=== PATIENT | male | born 1950 | race Caucasian/White ===

== ENCOUNTER 2023-09-29 13:18 | Inpatient (IN) | payer MEDICARE, SELFPAY ==
[2023-09-29] VITALS (21 sets, daily range): BP systolic 61–156; BP diastolic 33–84; BMI 30.3
[2023-09-29 10:50] LABS: % Basophils 0.2 % (0-2); % Immature Granulocytes 0.7 % (0-0.5); % Lymphocytes 3.4 % (20.5-51.1); % Monocytes 8.8 % (1.7-9.3); % Neutrophils 86.9 % (42.2-75.2); Absolute Immature Granulocytes 0.1 10^3/uL (0-0.05); Absolute Lymphocytes 0.6 10^3/uL (1.2-3.4); Absolute Monocytes 1.5 10^3/uL (0.1-0.6); Absolute Neutrophils 14.8 10^3/uL (1.4-6.5); Hematocrit 40.4 % (39.0-52.0); Hemoglobin 14.3 g/dL (13.0-18.0); Mean Corp Hgb Conc. 35.4 g/dL (33.0-37.0); Mean Corpuscular Hgb 33.3 pg (27.0-31.0); Mean Platelet Volume 10.3 fL (7.4-10.4); Nucleated Red Blood Cells % 0 % (-); Platelet Count 124 10^3/uL (130-400); Red Cell Dist. Width 13.2 % (11.5-14.5); White Blood Cell Count 17.1 10^3/uL (4.8-10.8)
[2023-09-29 11:01] LABS: ALT (SGPT) 207 U/L (0-50); AST (SGOT) 213 U/L (17-59); Albumin 4.1 g/dl (3.5-5.0); Alkaline Phosphatase 172 U/L (38-126); Blood Urea Nitrogen 14 mg/dl (9-20); Carbon Dioxide 24 mmol/L (22-30); Chloride 101 mmol/L (98-107); Estimated Creatinine Clearance 76 ml/min; Glucose 185 mg/dl (70-99); Lipase 42 U/L (23-300); Potassium 3.2 mmol/L (3.5-5.1); Sodium 133 mmol/L (135-145); Total Bilirubin 3.6 mg/dl (0.2-1.3); Total Protein 6.9 g/dl (6.3-8.2); eGFR > 60.00
--- NOTE | 2023-09-29 11:02 | ED.GENMED ---
History of Present Illness
<Jennifer Wesley PA-C - Last Filed: 10/01/23 23:52>
General
Chief Complaint: Abdominal Symptoms
Source: patient and spouse
Exam Limitations: none
Time Seen by Provider: 09/29/23 10:17
Nursing documentation reviewed up to this point in time: agreed with
Travel History
Have you had any contact with someone who has COVID-19?: No
Do you have any symptoms of coronavirus? Fever > 100 degrees, chills, cough, shortness of breath, sore throat, loss of taste or smell, muscle aches, or headache?: No
History of Present Illness
History of Present Illness:
Patient is a 73-year-old male with history hyperlipidemia, hypertension, GERD presenting for evaluation of epigastric abdominal pain with associated vomiting. Symptoms started acutely 2 days ago. He reports severe epigastric abdominal pain and
vomiting since onset. He had a low-grade temperature yesterday around 100.0 F with chills for the past 2 nights. Pain is mostly located in epigastric region without radiation. He denies any association with eating. He denies any chest pain,
shortness of breath, diarrhea, or constipation. Patient has no cough or symptoms. Patient denies ever feeling pain similar to this in the past.
Patient was seen in urgent care earlier today for evaluation of pain and referred to emergency department for possible imaging.
Patient drinks about 1 [place] per day. He is a non-smoker.
Phy Exam
<Jennifer Wesley PA-C - Last Filed: 10/01/23 23:52>
Physical Exam
Physical Exam:
General: Acutely ill-appearing, rigors
Vitals: Vital signs stable, low-grade temp of 99.5 F
HEENT: Atraumatic, normocephalic; pupils equal round reactive light bilaterally, protecting airway
Neck: appears supple, no meningeal signs
CV: Regular rate and rhythm, heart sounds normal, no evidence of cyanosis
Resp: No evidence of respiratory distress, lungs clear, no accessory muscle use
Abd: Soft, moderately tender in upper abdomen with some voluntary guarding, non-distended, negative Hoang sign; no CVA tenderness
Extremities: No deformities, no evidence of cyanosis or edema
Neuro: alert and oriented to person place time, speech normal, no focal motor deficits
Psych: Normal affect
Skin: Intact, no rashes or jaundice
Course
<Jennifer Wesley PA-C - Last Filed: 10/01/23 23:52>
Orders/Labs/Results
Orders:
Orders
09/29/23 10:39
Complete Blood Count/With Diff Urgent
Comprehensive Metabolic Panel Urgent
Lipase Urgent
09/29/23 11:08
CT Abd/pelvis W Iv Cont Urgent
Comment: hx appendectomy
Reason For Exam: epigastric abdominal pain, vomiting
0.9% Sodium Chloride 1000 ml [Nss] 1,000 ml IV BOLUS
HYDROmorphone [Dilaudid] 1 mg IV NOW STA
Ondansetron Injectable [Zofran] 4 mg IV NOW STA
09/29/23 11:17
Lactate Level [Lactic Acid] Urgent
Blood Culture Q30M
REN Source: Blood/Venous
Specimen Description:
Blood Culture Q30M
REN Source: Blood/Venous
Specimen Description:
09/29/23 11:45
Acetaminophen [Tylenol] 1,000 mg .ROUTE .STK-MED ONE
09/29/23 11:46
Acetaminophen [Tylenol] 1,000 mg PO NOW STA
Acetaminophen [Tylenol] 1,000 mg PO NOW STA
09/29/23 12:24
0.9% Sodium Chloride 1000 ml [Nss] 1,000 ml IV BOLUS
Piperacillin/Tazo 3.375 Gram [Zosyn] 3.375 gram in 50 ml IV NOW
09/29/23 12:25
POTASSIUM PHOSPHATE 1mEq=0.7mM [Potassium Phosphate] 40 meq 0.9% Sodium Chloride 250 ml [Nss] 250 ml IV NOW
09/29/23 12:55
Admit/Transfer Patient As Directed
Co-Sign Provider:
Level of Care: Inpatient admission
Assign to:: Telemetry
Physician / Group: mao leung
Diagnosis: acute cholecystitis
Reason for Telemetry: Other
Other Reason for Telemetry: sepsis
Date to Stop Telemetry: 10/01/23
Time to Stop Telemetry: 11:00
Reason for Hospitalization: acute cholecystitis
Expected length of stay greater than two midnights?: Yes
ELOS- Estimated Length of Stay in days: 3
I certify the patient meets the requirements for IP care: Yes
09/29/23 12:56
Code Status As Directed
Resuscitation Status: Full Code
09/29/23 13:04
EKG [Electrocardiogram (*1)] Stat
Reason for Study: QTc Monitoring
09/29/23 14:03
0.9% Sodium Chloride 1000 ml [Nss] 1,000 ml IV 80 mls/hr
HYDROmorphone [Dilaudid] 0.5 mg IV Q4HPRN PRN
Ibuprofen [Motrin] 400 mg PO Q6HPRN PRN
Ondansetron Injectable [Zofran] 4 mg IV Q6HPRN PRN
09/29/23 14:03
SURGICAL CONSULT Routine
Consulting Provider: Erick Mar
Was physician already notified: Yes
Activity As Directed
Activity Level: As Tolerated
Pneumatic Compression Sleeves As Directed
Type: Knee high
Vital Signs As Directed
Frequency: Per unit guidelines
DX Deep Vein Thrombosis Video Routine
09/29/23 14:55
Lactic Acid Q4H
09/29/23 18:00
Piperacillin/Tazo 3.375 Gram [Zosyn] 3.375 gram in 50 ml IV Q6H
09/29/23 19:10
Lactic Acid Q4H
09/29/23 22:00
Metoprolol Xl [Toprol Xl] 50 mg PO HS
Potassium Chloride [KCl] 10 meq PO HS
09/30/23 06:35
Complete Blood Count/No Diff IN AM
09/30/23 08:00
Amlodipine [Norvasc] 5 mg PO DAILY
Pantoprazole [Protonix IV] 40 mg IV DAILY
10/01/23 07:51
Complete Blood Count/No Diff IN AM
10/01/23 11:00
DC Protocol for Telemetry ONCE
10/02/23 06:00
Basic Metabolic Panel IN AM
Complete Blood Count/No Diff IN AM
LFT [Fazzk-Exkf-Gubbgbe] IN AM
10/03/23 06:00
Basic Metabolic Panel IN AM
Complete Blood Count/No Diff IN AM
LFT [Dxasb-Ozgi-Aaqsasl] IN AM
10/04/23 06:00
Complete Blood Count/No Diff IN AM
LFT [Pluzs-Jjkk-Sccttsn] IN AM
Abnormal Lab Results
09/29/23 09/29/23
10:39 11:17
WBC 17.1 H 10^3/uL
(4.8-10.8)
RBC 4.30 L 10^6/uL
(4.70-6.10)
MCH 33.3 H pg
(27.0-31.0)
Plt Count 124 L 10^3/uL
(130-400)
Abs Immat Gran (auto) 0.1 H 10^3/uL
(0-0.05)
Absolute Neuts (auto) 14.8 H 10^3/uL
(1.4-6.5)
Absolute Lymphs (auto) 0.6 L 10^3/uL
(1.2-3.4)
Absolute Monos (auto) 1.5 H 10^3/uL
(0.1-0.6)
Immature Gran % 0.7 H %
(0-0.5)
Neutrophils % 86.9 H %
(42.2-75.2)
Lymphocytes % 3.4 L %
(20.5-51.1)
Sodium 133 L mmol/L
(135-145)
Potassium 3.2 L mmol/L
(3.5-5.1)
Glucose 185 H mg/dl
(70-99)
Lactic Acid 4.6 H* mmol/L
(0.7-2.0)
Total Bilirubin 3.6 H mg/dl
(0.2-1.3)
AST 213 H U/L
(17-59)
ALT 207 H U/L
(0-50)
Alkaline Phosphatase 172 H U/L
(38-126)
09/29/23 10:39
09/29/23 10:39
Vital Signs
Initial and Last Documented VS:
Initial Vital Signs
Temp Pulse Resp BP Pulse Ox
99.5 F 89 16 124/82 98
09/29/23 10:13 09/29/23 10:13 09/29/23 10:13 09/29/23 10:13 09/29/23 10:13
Last Documented Vital Signs
Temp Pulse Resp BP Pulse Ox
97.9 F 64 16 123/71 95
10/01/23 23:00 10/01/23 23:00 10/01/23 23:00 10/01/23 23:00 10/01/23 23:00
Mianlt;Adalberto Edge DO - Last Filed: 09/29/23 11:51>
Orders/Labs/Results
Orders:
Orders
09/29/23 10:39
Complete Blood Count/With Diff Urgent
Comprehensive Metabolic Panel Urgent
Lipase Urgent
09/29/23 11:08
CT Abd/pelvis W Iv Cont Urgent
Comment: hx appendectomy
Reason For Exam: epigastric abdominal pain, vomiting
0.9% Sodium Chloride 1000 ml [Nss] 1,000 ml IV BOLUS
HYDROmorphone [Dilaudid] 1 mg IV NOW STA
Ondansetron Injectable [Zofran] 4 mg IV NOW STA
09/29/23 11:17
Lactate Level [Lactic Acid] Urgent
Blood Culture Q30M
REN Source: Blood/Venous
Specimen Description:
Blood Culture Q30M
REN Source: Blood/Venous
Specimen Description:
09/29/23 11:45
Acetaminophen [Tylenol] 1,000 mg .ROUTE .STK-MED ONE
09/29/23 11:46
Acetaminophen [Tylenol] 1,000 mg PO NOW STA
Acetaminophen [Tylenol] 1,000 mg PO NOW STA
09/29/23 12:24
0.9% Sodium Chloride 1000 ml [Nss] 1,000 ml IV BOLUS
Piperacillin/Tazo 3.375 Gram [Zosyn] 3.375 gram in 50 ml IV NOW
09/29/23 12:25
POTASSIUM PHOSPHATE 1mEq=0.7mM [Potassium Phosphate] 40 meq 0.9% Sodium Chloride 250 ml [Nss] 250 ml IV NOW
09/29/23 12:55
Admit/Transfer Patient As Directed
Co-Sign Provider:
Level of Care: Inpatient admission
Assign to:: Telemetry
Physician / Group: mao leung
Diagnosis: acute cholecystitis
Reason for Telemetry: Other
Other Reason for Telemetry: sepsis
Date to Stop Telemetry: 10/01/23
Time to Stop Telemetry: 11:00
Reason for Hospitalization: acute cholecystitis
Expected length of stay greater than two midnights?: Yes
ELOS- Estimated Length of Stay in days: 3
I certify the patient meets the requirements for IP care: Yes
09/29/23 12:56
Code Status As Directed
Resuscitation Status: Full Code
09/29/23 13:04
EKG [Electrocardiogram (*1)] Stat
Reason for Study: QTc Monitoring
09/29/23 14:03
0.9% Sodium Chloride 1000 ml [Nss] 1,000 ml IV 80 mls/hr
HYDROmorphone [Dilaudid] 0.5 mg IV Q4HPRN PRN
Ibuprofen [Motrin] 400 mg PO Q6HPRN PRN
Ondansetron Injectable [Zofran] 4 mg IV Q6HPRN PRN
09/29/23 14:03
SURGICAL CONSULT Routine
Consulting Provider: Erick Mar
Was physician already notified: Yes
Activity As Directed
Activity Level: As Tolerated
Pneumatic Compression Sleeves As Directed
Type: Knee high
Vital Signs As Directed
Frequency: Per unit guidelines
DX Deep Vein Thrombosis Video Routine
09/29/23 14:55
Lactic Acid Q4H
09/29/23 18:00
Piperacillin/Tazo 3.375 Gram [Zosyn] 3.375 gram in 50 ml IV Q6H
09/29/23 19:10
Lactic Acid Q4H
09/29/23 22:00
Metoprolol Xl [Toprol Xl] 50 mg PO HS
Potassium Chloride [KCl] 10 meq PO HS
09/30/23 06:35
Complete Blood Count/No Diff IN AM
09/30/23 08:00
Amlodipine [Norvasc] 5 mg PO DAILY
Pantoprazole [Protonix IV] 40 mg IV DAILY
10/01/23 07:51
Complete Blood Count/No Diff IN AM
10/01/23 11:00
DC Protocol for Telemetry ONCE
10/02/23 06:00
Basic Metabolic Panel IN AM
Complete Blood Count/No Diff IN AM
LFT [Txtyb-Yioa-Batecuv] IN AM
10/03/23 06:00
Basic Metabolic Panel IN AM
Complete Blood Count/No Diff IN AM
LFT [Xtqbz-Dulu-Rfgarzl] IN AM
10/04/23 06:00
Complete Blood Count/No Diff IN AM
LFT [Cnxvk-Jtby-Dzgnjkq] IN AM
Abnormal Lab Results
09/29/23 09/29/23
10:39 11:17
WBC 17.1 H 10^3/uL
(4.8-10.8)
RBC 4.30 L 10^6/uL
(4.70-6.10)
MCH 33.3 H pg
(27.0-31.0)
Plt Count 124 L 10^3/uL
(130-400)
Abs Immat Gran (auto) 0.1 H 10^3/uL
(0-0.05)
Absolute Neuts (auto) 14.8 H 10^3/uL
(1.4-6.5)
Absolute Lymphs (auto) 0.6 L 10^3/uL
(1.2-3.4)
Absolute Monos (auto) 1.5 H 10^3/uL
(0.1-0.6)
Immature Gran % 0.7 H %
(0-0.5)
Neutrophils % 86.9 H %
(42.2-75.2)
Lymphocytes % 3.4 L %
(20.5-51.1)
Sodium 133 L mmol/L
(135-145)
Potassium 3.2 L mmol/L
(3.5-5.1)
Glucose 185 H mg/dl
(70-99)
Lactic Acid 4.6 H* mmol/L
(0.7-2.0)
Total Bilirubin 3.6 H mg/dl
(0.2-1.3)
AST 213 H U/L
(17-59)
ALT 207 H U/L
(0-50)
Alkaline Phosphatase 172 H U/L
(38-126)
09/29/23 10:39
09/29/23 10:39
Vital Signs
Initial and Last Documented VS:
Initial Vital Signs
Temp Pulse Resp BP Pulse Ox
99.5 F 89 16 124/82 98
09/29/23 10:13 09/29/23 10:13 09/29/23 10:13 09/29/23 10:13 09/29/23 10:13
Last Documented Vital Signs
Temp Pulse Resp BP Pulse Ox
97.9 F 64 16 123/71 95
10/01/23 23:00 10/01/23 23:00 10/01/23 23:00 10/01/23 23:00 10/01/23 23:00
<Jennifer Wesley PA-C - Last Filed: 10/01/23 23:52>
MDM/Problems Addressed
Differential Diagnosis Includes:
pancreatitis, cholecystitis, cholangitis, diverticulitis, perforated bowel,
MDM/Problems Addressed:
Patient is 73-year-old male presenting for evaluation of severe abdominal pain, vomiting for the past 2 days. He reports fever and chills over the past 2 nights. Denies diarrhea, constipation. No chest pain, shortness of breath, symptoms.
Seen in urgent care who recommended he got emergency department for possible imaging. Patient appears very acutely ill on initial examination, shaking in bed. He has very low-grade fever 99.5, otherwise hemodynamically stable. He has moderate
abdominal tenderness no significant in epigastric region with some voluntary guarding. Negative Hoang sign. Will get basic labs, lipase, CT abdomen pelvis. Will start septic workup with blood cultures. Will give Zofran, Dilaudid for pain.
Starting IV fluids.
CBC with significant leukocytosis of 17.1. CMP with mild hyponatremia, mild hypokalemia. Transaminitis with elevated bili of 3.6. Lactic acid elevated 4.6. Findings suggestive of possible sepsis secondary to gallbladder etiology. CT scan
pending. Will continue IV fluids.
CT scan shows severe emphysematous cholecystitis with possible CBD stone. Starting Zosyn.
Patient will require admission for sepsis secondary to cholangitis. Discussed with hospitalist, general surgery, GI.
Chronic conditions affecting care:
HTN, HLD, GERD
Acute Exacerbation and/or Progression of Chronic Illness:
Sepsis, acute cholecystitis, CBD stone
<Jennifer Wesley PA-C - Last Filed: 10/01/23 23:52>
*Radiology
Radiology exam reviewed: preliminary read by ED provider and radiology read reviewed
*Pulse Oximetry
Patient hypoxic: no
*Sod Stripper Interpretation
Rate: Sod Stripper- N/A
*Critical Care Note
Total Time (30-74mins, 75-104mins- exclusive of procedures): Not Applicable
ED Attending Note
<Jennifer Wesley PA-C - Last Filed: 10/01/23 23:52>
-
Portions of this chart may have been created with voice recognition software.� Occasional wrong word or��sound alike� substitutions may have occurred due to the inherent limitations of voice recognition software.
<Adalberto Edge DO - Last Filed: 09/29/23 11:51>
ED Attending Note
Patient seen and examined by attending physician: Yes
I performed the substantive portion of visit, reviewed & personally made and approve the management plan that is documented in note by myself or FLEX.: Yes
ED Attending Note:
Patient is a 73-year-old male who presents to the emergency department with fever and chills with shakes for the past 2 nights with nausea and vomiting but no diarrhea. Patient complains of upper abdominal pain. Patient denies chest pain or
shortness of breath. Patient is very dry and thirsty. Patient denies any symptoms. Patient denies coughing. Patient denies any previous history of similar episodes. On physical exam and patient appears to be moderate to severe distress with
dry mucous membranes. Patient shaking. Neck is supple without adenopathy. Heart is regular lungs are clear. On abdominal exam patient's tender with mild voluntary guarding in the midepigastric and right upper quadrant. Patient has diminished
breath sounds. No CVA tenderness. Patient has no edema or cyanosis. Patient appears rather acutely ill. Patient has a significantly elevated white blood cell count along with liver enzymes and bilirubin. I anticipate the patient having
gallbladder versus liver disease. Patient will be also evaluated for sepsis. Patient will be admitted.
Discharge Plan
Departure
Patient Disposition: Admit
Date of Disposition: 09/29/23
Time of Disposition: 12:40
Admit to: ICU
Presentation/result/management discussed w/ accepting MD/DO: Hospitalist
Discharge Problem:
Sepsis, Emphysematous cholecystitis, Common bile duct calculi
Interventions
Interventions:
*General Assessment Last Done: 09/29/23 10:38
*Neglect/Abuse Screening Last Done: 09/29/23 10:38
ED- Fall Risk Assessment Last Done: 09/29/23 11:49
*Nursing Disposition Last Done: 09/29/23 13:54
GV-Tqkbyi-Rkszsnvheb Assessment Last Done: 09/29/23 11:49
Discharge Date and Time
Discharge Date/Time: 09/29/23 13:54
[2023-09-29] MEDS: DILAUDID 1 MG IV (11:18)
[2023-09-29] MEDS: NSS 1000 IV ×3 (11:18→14:29)
[2023-09-29] MEDS: ZOFRAN 4 MG IV (11:19)
[2023-09-29] MEDS: TYLENOL 1000 MG PO (11:46)
[2023-09-29 12:32] LABS: Lactic Acid 4.6 mmol/L (0.7-2.0)
[2023-09-29] MEDS: POTASSIUM PHOSPHATE 259.090899999999976 MEQ IV (12:41)
[2023-09-29] MEDS: ZOSYN 50 IV ×3 (12:42→23:37)
--- NOTE | 2023-09-29 12:45 | HPS.HSE ---
Addendum entered and electronically signed by Abelardo Jaramillo MD 09/29/23 14:14:
I saw and examined the patient.
The OCCUPATIONAL HEALTH AND SAFETY MANAGER or PA's note was reviewed and I agree with the note.
Comment:
Patient 73 years old male with history of hypertension, hyperlipidemia, GERD, bicuspid aortic valve, presented to the hospital abdominal pain associated with nausea and vomiting for the last couple of days. His pain has progressively getting worse
and located more in the right upper quadrant associated with fevers and chills. Denies chest pain or shortness of breath or changes in the color of the stools or urine.In the ED fever to temperature 101.3 �F, WBC 17, sodium 133, potassium 3.2,
lactic acid 4.6, LFTs elevated. CT scan consistent with severe emphysematous cholecystitis. He was referred to hospitalist service for evaluation.
Physical exam:
General: Acutely ill
HEENT: Normocephalic, Atraumatic and Moist Mucous Membranes
Respiratory: Clear to Auscultation; Negative Wheezes, Rales or Rhonchi
Cardiac: Regular Rhythm and S1/S2
GI: Soft,Tender RUQ and Nondistended
Musculoskeletal: No Clubbing, No Cyanosis and No Edema
Neuro: Awake, Alert and Oriented
Psych: Calm
A/P:
Sepsis due to acute cholecystitis/evidence of choledocholithiasis and concerns for cholangitis--> keep n.p.o., aggressive IV fluids, broad-spectrum IV antibiotics, follow-up cultures. Needs urgent ERCP with and or followed by cholecystectomy.
Surgery and GI consulted. Currently hemodynamically stable but this needs to be monitored closely since this can change rather quickly. Further recommendations based on his clinical course.
Original Note:
Family Physician
-
Family Physician: Katja Medrano
Chief Complaint
-
epigastric pain associated with vomiting
History of Present Illness
73-year-old male with history hyperlipidemia, hypertension, GERD presenting for evaluation of epigastric abdominal pain with associated vomiting for past two days. he had a temp of 100.4 at home. has been taking Tylenol with some relief in his
symptoms. denied diarrhea. denied any blood in the vomit. denied SUN, dizzy or syncopal episode. denied chest pain, sob. denied dysuria or hematuria.
Patient drinks about 1 [place] per day.� He is a non-smoker.
CT with findings consistent with severe emphysematous cholecystitis. Multiple gallstones with adjacent pericholecystic inflammatory change and gallbladder distention. Gas within the gallbladder lumen.
2. Suspected stone within the distal common bile duct, measuring 3 mm in diameter, best seen on series 201 image 34.
3. Small bubbles of gas within the liver, likely representing intrahepatic biliary ductal air.
noted elevated wbc, lactic, fever. admitting with sepsis. patient received Dilaudid, Zosyn, k phos in ER. admitting for further management.
Medical History
Past Medical History
Past Medical History: Reports Other
Additional Past Medical History:
htn
hld
GERD
Past Surgical History: Reports Other
Additional Past Surgical History:
appendectomy
tonsillectomy
one lesion removed from testicle
Social History
Tobacco: Non-smoker
Alcohol: Daily
Drug: None
Personal:
Living: With Family
Family History
Family History: Not pertinent
Allergies / Home Medications
Allergies reflects when Allergies were last updated in [employer].
Home Medications with original date entered in [employer]
Allergy/Medication List:
Allergies
Allergy/AdvReac Type Severity Reaction Status Date / Time
No Known Allergies Allergy Verified 09/29/23 10:14
Review of Systems
-
Constitutional: Reports No Symptoms
EENT: Reports No Symptoms
Respiratory: Reports No Symptoms
Cardiac: Reports No Symptoms
Abdomen/GI: Reports Abdominal Pain, Nausea and Vomiting
: Reports No Symptoms
Musculoskeletal: Reports No Symptoms
Skin: Reports No Symptoms
Neurological: Reports No Symptoms
Endocrine: Reports No Symptoms
Hematologic/Lymphatic: Reports No Symptoms
Psych: Reports No Symptoms
Physical Exam
Vital Signs
Vital Signs
Temp Pulse Resp BP Pulse Ox
101.9 F H 102 26 139/66 92
09/29/23 12:29 09/29/23 11:41 09/29/23 11:41 09/29/23 11:41 09/29/23 11:41
Physical Exam
General: Well Developed, Well Nourished and No Apparent Distress
HEENT: NormoCephalic, Moist mucous membranes and Atraumatic
Respiratory: Clear
Cardiac: S1/S2 and Regular Rhythm; No Murmur or Rub
GI: Soft, Non Tender, Non Distended and Normal Bowel Sounds; No Organomegaly
Rectal: Deferred by Provider
Musculoskeletal: No Clubbing, No Cyanosis and No Edema
Skin: No Rash
Neuro: AO x 3 and Nonfocal/grossly intact
Psych: Calm
Laboratory Results
-
09/29/23 10:39
09/29/23 10:39
Laboratory Results
Lactic Acid 4.6 mmol/L (0.7-2.0) H* 09/29/23 11:17
Total Bilirubin 3.6 mg/dl (0.2-1.3) H 09/29/23 10:39
AST 213 U/L (17-59) H 09/29/23 10:39
ALT 207 U/L (0-50) H 09/29/23 10:39
Alkaline Phosphatase 172 U/L (38-126) H 09/29/23 10:39
Lipase 42 U/L (23-300) 09/29/23 10:39
Data Reviewed
-
CT Scan: Report Reviewed by me
Lab Data: Labs Reviewed by me
Impression/Plan
-
#sepsis secondary to severe emphysematous cholecystitis with 3mm CBD stone
-temp 102.7, lactic 4.6,wbc 17.1, bili 3.6
-AT 213,ALT 207, ALK 172
-Zosyn imitated
-fluids continued
-Dilaudid prn for pa in
-blood culture sent from ER
-NPO
-surgery consulted
-Gi consulted
-CT abdomen pelvis with findings consistent with severe emphysematous cholecystitis. Multiple gallstones with adjacent pericholecystic inflammatory change and gallbladder distention. Gas within the gallbladder lumen.
2. Suspected stone within the distal common bile duct, measuring 3 mm in diameter, best seen on series 201 image 34.
3. Small bubbles of gas within the liver, likely representing intrahepatic biliary ductal air.
4. Moderate coronary arterial calcification. Please correlate with symptoms of and risk factors for coronary artery disease, with further workup as clinically appropriate.
#hyponatremia/hypokalemia likely from N/v
-na 133, k 3.2
-k phos in ER
-monitor BMP
-hold hctz due to hypokalemia/hyponatremia
#essential HTN
-BP stable
-Norvasc continued
-metoprolol continued
-hctz/triamterene held due to hyponatremia/hypokalemia
#HLD
-hold stain due to elevated LFT's
#GERD
-IV PPI
#DVT prophylaxis
-scd
#CODE status
-full code
--- NOTE | 2023-09-29 13:06 | CON.GS ---
Addendum entered and electronically signed by Erick Mar MD 09/29/23 14:04:
I saw and examined the patient independently.
The U[employer] Information Architect's note was reviewed and I agree with the note, assessment and plan except where noted below.
Comment: This is a 73-year-old male with a history of prior remote open appendectomy presents with 2-day history of postprandial epigastric and right upper quadrant pain and early sepsis. Febrile, elevated heart rate, tenderness palpation in the
right upper quadrant. Bilirubin is 3.6, lactate 4.6. CT scan concerning for 'emphysematous cholecystitis' however given the pneumobilia in the liver and the intraluminal air in the gallbladder as well as the distal CBD stone my suspicion is
elevated for cholangitis superimposed with acute cholecystitis.
GI consult for urgent ERCP. Will coordinate care.
CT scan reviewed with radiologist.
Will plan for a laparoscopic cholecystectomy and cholangiogram. Timing pending GI plans/recommendations, possible OR today versus tomorrow.
N.p.o., IV fluids, IV antibiotics.
Risks/Benefits/Alternatives, expected postoperative course and possible complications (bleeding, infection, injury to surrounding structures, acute/chronic pain) discussed at length. Patient wishes to proceed with surgery. All questions answered.
Consent obtained.
I spent roughly 70 minutes in total for the care of this patient today including direct patient care and counseling, reviewing labs, imaging, coordination of care, as well as documentation.
Original Note:
Medical History
-
Chief Complaint: Abdominal pain
History of Present Illness:
73 yo male with a h/o bicuspid [place] AV, GERD, HTN and open appendectomy who presents with epigastric and RUQ pain which began on Friday evening after a meal out at a restaurant which included sausage and peppers. He was awakened from sleep with
the pain and it has been persistent since that time. He denies vomiting but has not had an appetite and has only been able to take in fluids. He had a low grade temp of 100 yesterday and is febrile with temp of 102.7 initially in the ED. He has RUQ
tenderness on exam. He denies jaundice, acholic stools or changes to his urine.
Past Medical History
Past Medical History: GERD, HTN, Hypercholesterolemia, Valvular Disease (bicuspid AV ) and Other (MARINA/uses CPAP)
Past Surgical History: Appendectomy (open at age of 14), Tonsilectomy and Urological (removal of left testicular lesion)
Social History
Tobacco: Non-Smoker
Alcohol: Other (5X/day)
Personal:
Living: With Family
Family History
Family History: Reviewed & Not Pertinent
Allergies / Home Medications
Allergy/AdvReac Type Severity Reaction Status Date / Time
No Known Allergies Allergy Verified 09/29/23 10:14
Medication Instructions Recorded Confirmed Type
amlodipine 5 mg tablet 5 mg PO DAILY blood pressure 09/29/23 09/29/23 History
atorvastatin 10 mg tablet 10 mg PO HS high cholesterol 09/29/23 09/29/23 History
metoprolol succinate 50 mg 50 mg PO HS blood pressure 09/29/23 09/29/23 History
tablet,extended release 24 hr
multivitamin 1 tab PO DAILY Supplement 09/29/23 09/29/23 History
pantoprazole 20 mg tablet,delayed 20 mg PO DAILY Gastrointestinal 09/29/23 09/29/23 History
release Issue
potassium chloride 10 mEq 10 meq PO HS Electrolyte Repletion 09/29/23 09/29/23 History
capsule,extended release
psyllium 1 packet PO DAILY Constipation 09/29/23 09/29/23 History
triamterene 37.5 1 tab PO DAILY blood pressure 09/29/23 09/29/23 History
mg-hydrochlorothiazide 25 mg tablet
vitamin A-vitamin C-vit E-min 1 tab PO DAILY Supplement 09/29/23 09/29/23 History
tablet
Review of Systems
-
History Source: Patient and Family
All other systems: Negative unless noted
A 10 point review of systems was completed, and was negative except as per HPI.
Physical Exam
Vital Signs
Temp Pulse Resp BP Pulse Ox
101.9 F H 102 26 139/66 92
09/29/23 12:29 09/29/23 11:41 09/29/23 11:41 09/29/23 11:41 09/29/23 11:41
09/28/23 09/29/23 09/30/23
06:59 06:59 06:59
Actual Weight 97.5 kg
Body Mass Index (BMI) 30.0
Lab Results
09/29/23 10:39
09/29/23 10:39
WBC 17.1 10^3/uL (4.8-10.8) H 09/29/23 10:39
Hgb 14.3 g/dL (13.0-18.0) 09/29/23 10:39
Hct 40.4 % (39.0-52.0) 09/29/23 10:39
Plt Count 124 10^3/uL (130-400) L 09/29/23 10:39
Abs Immat Gran (auto) 0.1 10^3/uL (0-0.05) H 09/29/23 10:39
Neutrophils % 86.9 % (42.2-75.2) H 09/29/23 10:39
Physical Exam
General: Comfortable
HEENT: Normocephalic and Moist Mucous Membranes
Respiratory: Non Labored Respirations
GI: Soft, Non Distended and Tender (RUQ tenderness)
Skin: Other (Pale)
Neuro: Awake (sleepy s/p IV dilaudid) and AO x 3
Psych: Calm
Data Reviewed
-
CT Scan: Image Personally Visualized and interpreted, Report Reviewed by me, Discussed with Physician, Discussed with Nurse, Discussed with Patient and Discussed with Family
Labs: Labs Reviewed by me, Discussed with Physician, Discussed with Patient and Discussed with Family
Old Records: Reviewed
Assessment / Plan
-
Assessment:
This is a 73 yo male with h/o bicuspid av, MARINA on cpap, and open appendectomy presenting with 2 day history of RUQ after a fatty meal. CT imaging reviewed with emphysematous cholecystitis noted as well as a probable CBD stone. Noted leukocytosis,
elevated lactic acid and elevated bilirubin on laboratory studies with mild tachycardia and fever. Suspect ascending cholangitis. Patient meeting SIRS criteria. Mild hypoxia s/p narcotic administration requiring O2.
Plan:
Keep NPO
Start ABX
Analgesics/antiemetics prn
IVF while NPO
Follow labs/blood cultures
Given presence of CBD stone may benefit from ERCP prior to cholecystectomy. Discussed with GI provider, will coordinate care.
--- NOTE | 2023-09-29 13:16 | CON.GI ---
Addendum entered and electronically signed by Harriet Naylor MD 09/29/23 16:13:
I saw and examined the patient.
The ENVIRONMENTAL SERVICES DIRECTOR or PA's note was reviewed and I agree with the note.
Comment: 73-year-old male with history of hypertension, high cholesterol, GERD presenting with sudden onset epigastric/side upper quadrant discomfort in the last couple of days, fever, leukocytosis and elevated LFTs, CT scan of the abdomen pelvis
showing multiple gallstones with pericholecystic inflammation and gas within the gallbladder lumen and also 3 mm common duct stone. No previous similar episodes. No other GI complaints prior to this.
-Acute cholangitis/cholecystitis
N.p.o., IV fluids
Continue broad-spectrum antibiotic
For ERCP today followed by laparoscopic cholecystectomy per surgery
Will monitor closely
Original Note:
Consultation
-
Date/Time Consultation Requested: 09/29/23 1245
Date/Time Consultation Performed: 09/29/23 1315
Requesting Provider: Jennifer Wesley PA-C
Performing Provider: PAUL Boland, Harriet Naylor MD
Reason for Consultation: CBD stone
Medical History
Chief Complaint / HPI
Chief Complaint: abdominal pain
History of Present Illness:
Pt is a 73yo with hx GERD, CAD, HTN, hypercholesterolemia, GERD, bicuspid AV, PVC's, sleep apnea on cpap, thrombocytopenia, colon polyps with onset of epigastric pain with vomiting and fever. On admission noted WBC 17,100, platelets 124, lactate
4.6, Bili 3.6, AST 213, ALT 207, alk phos 172. Imaging with CT A/p with IV contrast with severe emphysematous cholecystitis. Multiple gallstones with adjacent pericholecystic inflammatory change and gallbladder distention. Gas within the
gallbladder lumen and Suspected stone within the distal common bile duct, measuring 3 mm in diameter. small bubble of gas in liver representing intrahepatic biliary ductal air.
Per family pt began with pain in middle of night 2 days ago with worsening symptoms with vomiting, sweats and fever. No hx gallbladder issues in past. No GERD, diarrhea, constipation, blood or black in stools.
Past Medical History
Past Medical History: Arrhythmias (PVC's), CAD, GERD, HTN, Hypercholesterolemia, Valvular Disease (bicuspid AV) and Other (arthritis, sleep apnea, thrombocytopenia, restless leg syndrome, cataracts, colon polyps)
Past Surgical History: Appendectomy (open ), Tonsilectomy and Urological (left testicular lesion removal)
Social History
Tobacco: Non-Smoker
Alcohol: Occasional (5 drinks per week)
Drug: None
Personal:
Living: With Family
Employment: Retired
Family History
Family History: Other (mother with hx tor in 80's)
Allergies / Home Medications
Allergy/AdvReac Type Severity Reaction Status Date / Time
No Known Allergies Allergy Verified 09/29/23 10:14
Medication Instructions Recorded
amlodipine 5 mg tablet 5 mg PO DAILY blood pressure 09/29/23
atorvastatin 10 mg tablet 10 mg PO HS high cholesterol 09/29/23
metoprolol succinate 50 mg 50 mg PO HS blood pressure 09/29/23
tablet,extended release 24 hr
multivitamin 1 tab PO DAILY Supplement 09/29/23
pantoprazole 20 mg tablet,delayed 20 mg PO DAILY Gastrointestinal 09/29/23
release Issue
potassium chloride 10 mEq 10 meq PO HS Electrolyte Repletion 09/29/23
capsule,extended release
psyllium 1 packet PO DAILY Constipation 09/29/23
triamterene 37.5 1 tab PO DAILY blood pressure 09/29/23
mg-hydrochlorothiazide 25 mg tablet
vitamin A-vitamin C-vit E-min 1 tab PO DAILY Supplement 09/29/23
tablet
Review of Systems
-
History Source: Patient and Family
Constitutional: Reports Fever, Fatigue and Chills
EENT: Reports No Symptoms
Respiratory: Reports No Symptoms
Cardiac: Reports No Symptoms
Abdomen/GI: Reports Abdominal Pain, Nausea and Vomiting
: Reports No Symptoms
Musculoskeletal: Reports No Symptoms
Skin: Reports No Symptoms
Neurological: Reports Weakness
Endocrine: Reports No Symptoms
Hematologic/Lymphatic: Reports No Symptoms
Vital Signs
Temp Pulse Resp BP Pulse Ox
101.9 F H 96 23 143/73 93
09/29/23 12:29 09/29/23 13:00 09/29/23 13:00 09/29/23 13:00 09/29/23 13:00
Physical Exam
Exam
General: Other (slight jaundice with lethargy after pain meds in ER)
HEENT: Normocephalic
Respiratory: Clear
Cardiac: Regular Rhythm
GI: Soft, Non Distended and Tender (epigastric pain )
Musculoskeletal: No Clubbing and No Cyanosis
Skin: Warm and Dry
Neuro: Other (sleepy but arousable )
Psych: Calm
Results
WBC 17.1 10^3/uL (4.8-10.8) H 09/29/23 10:39
Hgb 14.3 g/dL (13.0-18.0) 09/29/23 10:39
Hct 40.4 % (39.0-52.0) 09/29/23 10:39
MCV 94.0 fL (80.0-94.0) 09/29/23 10:39
Plt Count 124 10^3/uL (130-400) L 09/29/23 10:39
Absolute Neuts (auto) 14.8 10^3/uL (1.4-6.5) H 09/29/23 10:39
Sodium 133 mmol/L (135-145) L 09/29/23 10:39
Potassium 3.2 mmol/L (3.5-5.1) L 09/29/23 10:39
Chloride 101 mmol/L (98-107) 09/29/23 10:39
Carbon Dioxide 24 mmol/L (22-30) 09/29/23 10:39
BUN 14 mg/dl (9-20) 09/29/23 10:39
Creatinine 0.9 mg/dL (0.7-1.3) 09/29/23 10:39
Calcium 9.0 mg/dl (8.4-10.2) 09/29/23 10:39
Total Bilirubin 3.6 mg/dl (0.2-1.3) H 09/29/23 10:39
AST 213 U/L (17-59) H 09/29/23 10:39
ALT 207 U/L (0-50) H 09/29/23 10:39
Alkaline Phosphatase 172 U/L (38-126) H 09/29/23 10:39
Lipase 42 U/L (23-300) 09/29/23 10:39
Diagnostic Image Results:
09/29/23 CT A/p with IV contrast
1. Findings consistent with severe emphysematous cholecystitis. Multiple gallstones with adjacent pericholecystic inflammatory change and gallbladder distention. Gas within the gallbladder lumen.
2. Suspected stone within the distal common bile duct, measuring 3 mm in diameter, best seen on series 201 image 34.
3. Small bubbles of gas within the liver, likely representing intrahepatic biliary ductal air.
4. Moderate coronary arterial calcification. Please correlate with symptoms of and risk factors for coronary artery disease, with further workup as clinically appropriate.
Prior GI Procedures:
EGD: none
Colonoscopy: Dr. Phillip ferrell in past with hx polyps
Assessment / Plan
-
Pt is a 73yo with hx GERD, CAD, HTN, hypercholesterolemia, GERD, bicuspid AV, PVC's, sleep apnea on cpap, thrombocytopenia, colon polyps with onset of epigastric pain with vomiting and fever. On admission noted WBC 17,100, platelets 124, lactate
4.6, Bili 3.6, AST 213, ALT 207, alk phos 172. Imaging with CT A/p with IV contrast with severe emphysematous cholecystitis. Multiple gallstones with adjacent pericholecystic inflammatory change and gallbladder distention. Gas within the
gallbladder lumen and Suspected stone within the distal common bile duct, measuring 3 mm in diameter. small bubble of gas in liver representing intrahepatic biliary ductal air.
-abdominal pain with vomiting
-concern for CBD stone, severe emphysematous cholecystitis, and intrahepatic biliary ductal airr on imaging
-sepsis/fever/leukocytosis
other medical problems:
-GERD
-CAD
-colon polyps
-HTN
hypercholesterolemia
-bicuspid AV
-PVC's
-sleep apnea on c-pap
-thrombocytopenia
-hx left testicular lesion with removal
PLAN:
etiology of symptoms with concern for cholangitis with CBD stone vs other
will review with GI team for image reviewed and availability for ERCP this afternoon
cont NPO
IVF
cont abx
trend labs
reviewed with Dr. Mar
update [email or web address] at bedside ([phone] or [phone](pt phone if needed for updates))
-
-
Thank you for consultation and allowing me to participate in the patient's care. Please call the hospital monitor GI physician during the after hours with any questions or concerns.
[2023-09-29 15:30] LABS: Lactic Acid 3.7 mmol/L (0.7-2.0)
--- NOTE | 2023-09-29 18:45 | PTCARENOTE ---
Received pt from PACU, VSS. Denies pain at present, denies nausea. Tolerating sips of clears. Call bradford in reach.
[2023-09-29 19:33] LABS: Lactic Acid 3.2 mmol/L (0.7-2.0)
[2023-09-29] MEDS: KCL 10 MEQ PO (21:00)
[2023-09-29] MEDS: TOPROL XL 50 MG PO (21:00)
[2023-09-30] VITALS (11 sets, daily range): BP systolic 108–138; BP diastolic 64–84
[2023-09-30] MEDS: NSS 1000 IV ×2 (02:55→16:10)
[2023-09-30] MEDS: ZOSYN 50 IV ×4 (05:30→23:26)
--- NOTE | 2023-09-30 07:23 | W.PN.GS2 ---
Today's Communication / Plan
-
-- Lap tor
Assessment / Plan
-
Patient is a 73 yo M p/w choledocholithiasis
S/p ERCP (09/29/2023): successful removal of stones and sludge, stent placed, no closing cholangiogram performed
The natural history and pathophysiology of biliary and stone disease was discussed. Role of cholecystectomy to prevent future episodes of choledocho or cholecystitis were reviewed. Recommend and plan for cholecystectomy.
Plan for a laparoscopic cholecystectomy. The procedure itself, as well as the risks, benefits, and alternatives was discussed. Specifically, we discussed the risks of bleeding, infection, injury to surrounding instructions (bowel, bile ducts), CBD
injury, and need for open procedure. Post-procedure recovery was discussed. All questions answered. Consent signed.
-- Lap tor
-- NPO, IVF
-- Abx: Zosyn
Subjective Data
-
Date of Service: September 30, 2023
Recovering well from ERCP. Pain improved and resolved. No nausea or emesis. No fevers. Denies attacks of pain prior to this episode.
Objective Data
-
Intake and Output
09/29/23 09/30/23 10/01/23
06:59 06:59 06:59
Intake Total 1210 / 1210
Output Total 950 / 950
Balance 260 / 260
Intake:
Oral fluids 480 / 480
IV fluids (Total) 730 / 730
LR 250 / 250
Normosol 300 / 300
nss 80 / 80
Output:
Urine, Voided 950 / 950
Vital Signs
Temp Pulse Resp BP Pulse Ox
98.4 F 60 18 108/64 94
09/30/23 03:41 09/30/23 03:41 09/30/23 03:41 09/30/23 03:41 09/30/23 03:41
Calcium 9.0 mg/dl (8.4-10.2) 09/29/23 10:39
Total Bilirubin 3.6 mg/dl (0.2-1.3) H 09/29/23 10:39
AST 213 U/L (17-59) H 09/29/23 10:39
ALT 207 U/L (0-50) H 09/29/23 10:39
Alkaline Phosphatase 172 U/L (38-126) H 09/29/23 10:39
Total Protein 6.9 g/dl (6.3-8.2) 09/29/23 10:39
Albumin 4.1 g/dl (3.5-5.0) 09/29/23 10:39
Physical Exam
-
Gen: NAD
Abd: soft, NT/ND, non-peritoneal, negative Hoang's sign
[2023-09-30 07:27] LABS: Hematocrit 36.1 % (39.0-52.0); Hemoglobin 12.9 g/dL (13.0-18.0); Mean Corp Hgb Conc. 35.7 g/dL (33.0-37.0); Mean Corpuscular Hgb 33.7 pg (27.0-31.0); Mean Corpuscular Volume 94.3 fL (80.0-94.0); Platelet Count 85 10^3/uL (130-400); Red Blood Cell Count 3.83 10^6/uL (4.70-6.10); Red Cell Dist. Width 13.6 % (11.5-14.5); White Blood Cell Count 20.6 10^3/uL (4.8-10.8)
--- NOTE | 2023-09-30 07:28 | W.SUR.PREOP ---
Pre-Operative Surgical Note
-
I have examined this patient prior to the performance of the scheduled procedure.
The patient's condition is unchanged from the time of the current History and
Physical and the patient is able to undergo the scheduled procedure.
[2023-09-30 07:48] LABS: Chloride 100 mmol/L (98-107); Potassium 3.5 mmol/L (3.5-5.1); Sodium 135 mmol/L (135-145)
[2023-09-30 07:59] LABS: ALT (SGPT) 396 U/L (0-50); AST (SGOT) 347 U/L (17-59); Albumin 3.1 g/dl (3.5-5.0); Alkaline Phosphatase 141 U/L (38-126); Blood Urea Nitrogen 15 mg/dl (9-20); Calcium 7.7 mg/dl (8.4-10.2); Carbon Dioxide 24 mmol/L (22-30); Direct Bilirubin 2.9 mg/dl (0.0-0.4); Estimated Creatinine Clearance 85 ml/min; Glucose 150 mg/dl (70-99); Total Bilirubin 4.5 mg/dl (0.2-1.3); Total Protein 5.7 g/dl (6.3-8.2); eGFR > 60.00
--- NOTE | 2023-09-30 09:23 | W.PN.HOSP.TC ---
Today's Communication/Plan
-
Cont iv antibiotics, Deloris
Assessment / Plan
Assessment / Plan
Physical exam:
General: Acutely ill
HEENT: Normocephalic, Atraumatic and Moist Mucous Membranes
Respiratory: Clear to Auscultation; Negative Wheezes, Rales or Rhonchi
Cardiac: Regular Rhythm and S1/S2
GI: Soft, Tender in RUQ and Nondistended
Musculoskeletal: No Clubbing, No Cyanosis and No Edema
Neuro: Awake, Alert and Oriented
Psych: Calm
A/P:
Sepsis due to cholecystitis and cholangitis with choledocholithiasis--> cont IV fluids and stop tonight after surgery, IV antibiotics of Zosyn, status post ERCP removal of stone and biliary sphincterotomy and balloon extraction yesterday. Repeat
WBC in am. Plan for cholecystectomy today. Updated family at bedside.
hyponatremia/hypokalemia--> normal today, cont hold hctz, monitor electrolytes again in am to ensure stability.
HTN--> cont Norvasc and metoprolol, cont hold hctz/triamterene
HLD-->hold stain due to elevated LFT's
GERD--> cont IV PPI
DVT prophylaxis-->Lovenox sq
CODE status-->full code
Anticipated Discharge: 24 - 48 hours
Subjective/Interval History
-
Date of Service: September 30, 2023
Patient denies cp, sob. Abdominal discomfort
Objective Data
-
Labs:
Laboratory Results
09/30/23
06:35
WBC 20.6 H
Hgb 12.9 L
Hct 36.1 L
Plt Count 85 L D
Sodium 135
Potassium 3.5
Chloride 100
Carbon Dioxide 24
BUN 15
Creatinine 0.9
Glucose 150 H
Calcium 7.7 L
Total Bilirubin 4.5 H
AST 347 H
ALT 396 H
Alkaline Phosphatase 141 H
Vital Signs:
Vital Signs
Temp Pulse Resp BP Pulse Ox
98.2 F 64 16 120/71 96
09/30/23 07:00 09/30/23 07:00 09/30/23 07:00 09/30/23 07:00 09/30/23 07:00
I&O
09/29/23 09/30/23 10/01/23
06:59 06:59 06:59
Intake Total 1210 / 1210
Output Total 950 / 950
Balance 260 / 260
Review of Systems
-
All other systems: Reviewed and negative
--- NOTE | 2023-09-30 10:09 | W.IMMPOSTOP ---
Addendum entered and electronically signed by Michael Wood MD 09/30/23 10:54:
[facility]#[id number]
Original Note:
Surgical Immed Post Op Note
-
Primary Surgeon: Nina
Assisting Surgeon: None
Pre-op Diagnosis: Choledocholithiasis
Post-op Diagnosis: Choledocholithiasis
Procedure Performed: Laparoscopic cholecystectomy
Anesthesia Type: General
Specimen / Cultures:
1. Gallbladder
Estimated Blood Loss: 51 cc
Complications: None
Operative Findings:
1. Severe fatty liver disease, fatty distended GB, moderate wall thickening
2. Critical view of safety, no IOC given ERCP yesterday
3. Hemostasis of liver bed assured with cautery and Surgicel (removed)
[2023-09-30] MEDS: NORVASC 5 MG PO (12:10)
[2023-09-30] MEDS: TYLENOL 650 MG PO ×2 (12:11→19:59)
[2023-09-30] MEDS: PROTONIX IV 40 MG IV (12:12)
[2023-09-30] MEDS: NSS (PRESERVATIVE FREE) 10 ML IV (12:12)
--- NOTE | 2023-09-30 12:22 | PTCARENOTE ---
Received patient from PACU awake alert oriented x3. No complaints of pain . O2 at 2LPM - 94 % pulse ox. On clear liquid diet- tolerating at present. 5 small surgical incisions noted across abdomen, areas glued close, no drainage noted. in
to visit at present , call bradford in reach.
--- NOTE | 2023-09-30 14:00 | CM ---
Patient seen bedside, initial assessment completed. Patient reports he lives with his , Emilia, in a single story home. Patient denies DME, VN, and SNF. Patient currently requiring oxygen, otherwise not home home O2. Patient confirms PCP
Marcela, pharmacy used [facility]. CM will continue to follow for discharge planning needs, watch for VN needs.
Plan; home no needs, watch for possible VN needs.
[2023-09-30] MEDS: TYLENOL PO ×2 (16:06→23:32)
[2023-09-30] MEDS: KCL 10 MEQ PO (21:17)
[2023-09-30] MEDS: TOPROL XL 50 MG PO (21:17)
[2023-10-01 03:27] VITALS: BP 116/73
[2023-10-01] MEDS: TYLENOL PO ×6 (03:48→23:34)
[2023-10-01] MEDS: ZOSYN 50 IV ×4 (05:13→23:34)
[2023-10-01 07:00] VITALS: BP 136/67
[2023-10-01 08:24] LABS: Hematocrit 36.9 % (39.0-52.0); Hemoglobin 13.1 g/dL (13.0-18.0); Mean Corp Hgb Conc. 35.5 g/dL (33.0-37.0); Mean Corpuscular Volume 92.9 fL (80.0-94.0); Mean Platelet Volume 11.2 fL (7.4-10.4); Platelet Count 87 10^3/uL (130-400); Red Blood Cell Count 3.97 10^6/uL (4.70-6.10); Red Cell Dist. Width 13.5 % (11.5-14.5); White Blood Cell Count 21.2 10^3/uL (4.8-10.8)
[2023-10-01] MEDS: NORVASC 5 MG PO (08:31)
[2023-10-01] MEDS: PROTONIX IV 40 MG IV (08:32)
[2023-10-01] MEDS: NSS (PRESERVATIVE FREE) 10 ML IV (08:32)
[2023-10-01 08:49] LABS: ALT (SGPT) 288 U/L (0-50); AST (SGOT) 189 U/L (17-59); Albumin 2.9 g/dl (3.5-5.0); Alkaline Phosphatase 131 U/L (38-126); Blood Urea Nitrogen 24 mg/dl (9-20); Calcium 8.2 mg/dl (8.4-10.2); Carbon Dioxide 22 mmol/L (22-30); Chloride 103 mmol/L (98-107); Direct Bilirubin 2.5 mg/dl (0.0-0.4); Estimated Creatinine Clearance 85 ml/min; Glucose 135 mg/dl (70-99); Potassium 3.3 mmol/L (3.5-5.1); Sodium 135 mmol/L (135-145); Total Bilirubin 3.8 mg/dl (0.2-1.3); Total Protein 5.5 g/dl (6.3-8.2); eGFR > 60.00
--- NOTE | 2023-10-01 10:38 | W.PN.HOSP.TC ---
Today's Communication/Plan
-
Continue antibiotics
Repeat cultures
Replete potassium
Check magnesium
Assessment / Plan
Assessment / Plan
Gen-AAOx3, NAD
HEENT-NC, AT, anicteric, clear oral mm
Neck-supple
CV-reg, no M, +S1/S2
Lungs-clear B/L
Abd-soft, NT, ND
Ext-no edema
Musculoskeletal-no cyanosis, clubbing
Skin-warm and dry
Neuro-grossly non-focal
Psych-calm, cooperative
E. coli sepsis - due to cholecystitis and cholangitis with choledocholithiasis--> cont IV fluids and stop tonight after surgery, IV antibiotics of Zosyn, status post ERCP removal of stone and biliary sphincterotomy and balloon extraction yesterday.
Stable after laparoscopic cholecystectomy September 30. LFTs still elevated.
Check repeat blood cultures. Continue empiric antibiotics. White blood cell count 21,000 today. Afebrile.
Hyponatremia -HCTZ discontinued. Sodium 135.
Thrombocytopenia -unclear if acute versus chronic. 87,000 today. Recheck tomorrow.
Hyperglycemia -rule out DM2. Check hemoglobin A1c.
Hypokalemia -will replete. Check magnesium.
Essential HTN--> cont Norvasc and metoprolol, cont hold hctz/triamterene
Hyperlipidemia ->hold stain due to elevated LFT's
GERD--> cont IV PPI
DVT prophylaxis-->Lovenox sq
Full code
Anticipated Discharge: 24 - 48 hours
Subjective/Interval History
-
Date of Service: October 01, 2023
Patient seen and examined. No complaints. Ate breakfast.
Objective Data
-
Labs:
Laboratory Results
10/01/23
07:51
WBC 21.2 H
Hgb 13.1
Hct 36.9 L
Plt Count 87 L
Sodium 135
Potassium 3.3 L
Chloride 103
Carbon Dioxide 22
BUN 24 H
Creatinine 0.9
Glucose 135 H
Calcium 8.2 L
Total Bilirubin 3.8 H
AST 189 H
ALT 288 H
Alkaline Phosphatase 131 H
Vital Signs:
Vital Signs
Temp Pulse Resp BP Pulse Ox
98.3 F 74 18 136/67 100
10/01/23 07:00 10/01/23 07:00 10/01/23 07:00 10/01/23 07:00 10/01/23 07:00
I&O
09/30/23 10/01/23 10/02/23
06:59 06:59 06:59
Intake Total 1210 / 1210 2400 / 2400
Output Total 950 / 950 1350 / 1350
Balance 260 / 260 1050 / 1050
Review of Systems
-
History Source: Patient
All other systems: Reviewed and negative
[2023-10-01 11:00] VITALS: BP 131/66
[2023-10-01] MEDS: KCL 40 MEQ PO (11:02)
--- NOTE | 2023-10-01 11:37 | PTCARENOTE ---
Received patient awake and alert, oriented . Denies any pain or discomfort. Abdomen with 5 sm incisional sites , clean dry intact, well approximated. Able to make needs known.
[2023-10-01 11:43] LABS: Magnesium 1.9 mg/dl (1.6-2.3)
[2023-10-01 15:00] VITALS: BP 120/73
--- NOTE | 2023-10-01 15:05 | W.PN.GS2 ---
Today's Communication / Plan
-
LFD
Assessment / Plan
-
Patient is a 73 yo M p/w choledocholithiasis
S/p ERCP (09/29/2023): successful removal of stones and sludge, stent placed, no closing cholangiogram performed
POD1 s/p lap tor
-- Cont low fat diet
-- Cont IV Abx: Zosyn
-- Correct lytes per Hospitalist
-- All other care as per primary team
Subjective Data
-
Date of Service: October 01, 2023
Afebrile, no complaints, devon PO, pain controlled
Objective Data
-
Intake and Output
09/30/23 10/01/23 10/02/23
06:59 06:59 06:59
Intake Total 1210 / 1210 2400 / 2400
Output Total 950 / 950 1350 / 1350
Balance 260 / 260 1050 / 1050
Intake:
Oral fluids 480 / 480 1220 / 1220
IV fluids (Total) 730 / 730 1080 / 1080
LR 250 / 250
Normosol 300 / 300 200 / 200
nss 80 / 80
IV piggybacks 100 / 100
Output:
Urine, Voided 950 / 950 1350 / 1350
Other:
Number of approximated LARGE 1
amounts of urine
Vital Signs
Temp Pulse Resp BP Pulse Ox
98.6 F 63 18 131/66 96
10/01/23 11:00 10/01/23 11:00 10/01/23 11:00 10/01/23 11:00 10/01/23 11:00
Lab Results
10/01/23 07:51
10/01/23 07:51
Calcium 8.2 mg/dl (8.4-10.2) L 10/01/23 07:51
Magnesium 1.9 mg/dl (1.6-2.3) 10/01/23 07:51
Total Bilirubin 3.8 mg/dl (0.2-1.3) H 10/01/23 07:51
Direct Bilirubin 2.5 mg/dl (0.0-0.4) H 10/01/23 07:51
AST 189 U/L (17-59) H 10/01/23 07:51
ALT 288 U/L (0-50) H 10/01/23 07:51
Alkaline Phosphatase 131 U/L (38-126) H 10/01/23 07:51
Total Protein 5.5 g/dl (6.3-8.2) L 10/01/23 07:51
Albumin 2.9 g/dl (3.5-5.0) L 10/01/23 07:51
Physical Exam
-
Gen: NAD
Abd: soft, approp ttp, incisions cdi with some mild surrounding ecchymosis
[2023-10-01] MEDS: LOVENOX 40 MG SC (17:30)
[2023-10-01 19:30] VITALS: BP 119/68
[2023-10-01] MEDS: TOPROL XL 50 MG PO (20:41)
[2023-10-01] MEDS: KCL 20 MEQ PO (20:41)
[2023-10-01 23:00] VITALS: BP 123/71
[2023-10-02 03:00] VITALS: BP 135/78
[2023-10-02] MEDS: TYLENOL PO ×2 (05:42→23:05)
[2023-10-02] MEDS: ZOSYN 50 IV ×4 (06:35→23:00)
[2023-10-02] MEDS: TYLENOL 650 MG PO ×4 (06:39→19:41)
[2023-10-02 07:45] VITALS: BP 142/72
[2023-10-02] MEDS: NSS (PRESERVATIVE FREE) 10 ML IV (08:12)
[2023-10-02] MEDS: PROTONIX IV 40 MG IV (08:12)
[2023-10-02] MEDS: NORVASC 5 MG PO (08:12)
[2023-10-02] MEDS: MIRALAX 17 GRAMS PO (08:12)
--- NOTE | 2023-10-02 08:29 | W.PN.HOSP.TC ---
Today's Communication/Plan
-
Await blood culture sensitivity
Repeat blood cultures
Hemoglobin A1c
Await labs
Continue antibiotics
Assessment / Plan
Assessment / Plan
Gen-AAOx3, NAD
HEENT-NC, AT, anicteric, clear oral mm
Neck-supple
CV-reg, no M, +S1/S2
Lungs-clear B/L
Abd-soft, NT, ND
Ext-no edema
Musculoskeletal-no cyanosis, clubbing
Skin-warm and dry
Neuro-grossly non-focal
Psych-calm, cooperative
E. coli sepsis - due to cholecystitis and cholangitis with choledocholithiasis, status post ERCP removal of stone and biliary sphincterotomy and balloon extraction. Stable after laparoscopic cholecystectomy September 30. LFTs still elevated.
Check repeat blood cultures. Continue empiric antibiotics. CBC pending for today. Afebrile. Looks well.
Hyponatremia -HCTZ discontinued. Sodium 135.
Thrombocytopenia -unclear if acute versus chronic. CBC pending for today.
Hyperglycemia -rule out DM2. Check hemoglobin A1c.
Hypokalemia -magnesium normal. Labs pending for today. Evening dose of potassium increased to 20 meq at bedtime.
Essential HTN--> cont Norvasc and metoprolol, cont hold hctz/triamterene
Hyperlipidemia ->hold stain due to elevated LFT's
GERD--> cont IV PPI
Obesity due to excess calories
DVT prophylaxis-->Lovenox sq
Full code
Anticipated Discharge: 24 - 48 hours
Subjective/Interval History
-
Date of Service: October 02, 2023
Patient seen and examined. Denies abdominal pain. Tolerating diet. Denies diarrhea. No complaints.
Objective Data
-
Labs:
Laboratory Results
10/02/23
08:14
WBC Pending
Hgb Pending
Hct Pending
Plt Count Pending
Sodium Pending
Potassium Pending
Chloride Pending
Carbon Dioxide Pending
BUN Pending
Creatinine Pending
Glucose Pending
Calcium Pending
Total Bilirubin Pending
AST Pending
ALT Pending
Alkaline Phosphatase Pending
Vital Signs:
Vital Signs
Temp Pulse Resp BP Pulse Ox
97.6 F 62 18 135/78 94
10/02/23 03:00 10/02/23 03:00 10/02/23 03:00 10/02/23 03:00 10/02/23 03:00
I&O
10/01/23 10/02/23 10/03/23
06:59 06:59 06:59
Intake Total 2400 / 2400 1200 / 1200
Output Total 1350 / 1350
Balance 1050 / 1050 1200 / 1200
Review of Systems
-
History Source: Patient
All other systems: Reviewed and negative
--- NOTE | 2023-10-02 08:56 | W.PN.GS2 ---
Today's Communication / Plan
-
`
Assessment / Plan
-
Patient is a 73 yo M p/w choledocholithiasis, ecoli bacteremia
S/p ERCP (09/29/2023): successful removal of stones and sludge, stent placed, no closing cholangiogram performed
POD2 s/p lap tor
-- Cont low fat diet
-- Stable for dc from surgical standpoint
-- follow up with dr rodgers in ~2weeks for post op check
Subjective Data
-
Date of Service: October 02, 2023
pt seen and examined
offers no complaints
incision sites with soreness, no pain
Objective Data
-
Intake and Output
10/01/23 10/02/23 10/03/23
06:59 06:59 06:59
Intake Total 2400 / 2400 1200 / 1200
Output Total 1350 / 1350
Balance 1050 / 1050 1200 / 1200
Intake:
Oral fluids 1220 / 1220 1200 / 1200
IV fluids (Total) 1080 / 1080
Normosol 200 / 200
IV piggybacks 100 / 100
Output:
Urine, Voided 1350 / 1350
Other:
Number of approximated MODERATE 2
amounts of urine
Number of approximated LARGE 1 3
amounts of urine
Vital Signs
Temp Pulse Resp BP Pulse Ox
97.6 F 62 18 135/78 94
10/02/23 03:00 10/02/23 03:00 10/02/23 03:00 10/02/23 03:00 10/02/23 03:00
Calcium 8.2 mg/dl (8.4-10.2) L 10/01/23 07:51
Magnesium 1.9 mg/dl (1.6-2.3) 10/01/23 07:51
Total Bilirubin 3.8 mg/dl (0.2-1.3) H 10/01/23 07:51
Direct Bilirubin 2.5 mg/dl (0.0-0.4) H 10/01/23 07:51
AST 189 U/L (17-59) H 10/01/23 07:51
ALT 288 U/L (0-50) H 10/01/23 07:51
Alkaline Phosphatase 131 U/L (38-126) H 10/01/23 07:51
Total Protein 5.5 g/dl (6.3-8.2) L 10/01/23 07:51
Albumin 2.9 g/dl (3.5-5.0) L 10/01/23 07:51
Physical Exam
-
NAD AAOx3
ABD: softly distended, NTTP, incisions with glue dressings, localized ecchymosis, no hematomas
[2023-10-02 09:06] LABS: Hematocrit 33.6 % (39.0-52.0); Mean Corp Hgb Conc. 35.7 g/dL (33.0-37.0); Mean Corpuscular Hgb 33.4 pg (27.0-31.0); Mean Corpuscular Volume 93.6 fL (80.0-94.0); Mean Platelet Volume 11.5 fL (7.4-10.4); Platelet Count 88 10^3/uL (130-400); Red Blood Cell Count 3.59 10^6/uL (4.70-6.10); Red Cell Dist. Width 13.7 % (11.5-14.5); White Blood Cell Count 12.9 10^3/uL (4.8-10.8)
[2023-10-02 10:27] LABS: ALT (SGPT) 234 U/L (0-50); AST (SGOT) 106 U/L (17-59); Albumin 2.6 g/dl (3.5-5.0); Alkaline Phosphatase 155 U/L (38-126); Blood Urea Nitrogen 23 mg/dl (9-20); Carbon Dioxide 27 mmol/L (22-30); Chloride 103 mmol/L (98-107); Direct Bilirubin 2.4 mg/dl (0.0-0.4); Estimated Creatinine Clearance 85 ml/min; Glucose 113 mg/dl (70-99); Potassium 3.5 mmol/L (3.5-5.1); Sodium 135 mmol/L (135-145); Total Bilirubin 3.6 mg/dl (0.2-1.3); Total Protein 5.1 g/dl (6.3-8.2); eGFR > 60.00
--- NOTE | 2023-10-02 11:46 | CM ---
Patient seen bedside, reports no new concerns at this time. Per Hospitalist note, continue with antibiotics. CM will continue to follow for discharge planning needs.
Plan; home no needs, watch for possible VN needs.
[2023-10-02 12:13] LABS: Glycohemoglobin (HgbA1c) 6.2 % (4.0-5.6)
[2023-10-02 15:41] VITALS: BP 137/68
[2023-10-02] MEDS: LOVENOX 40 MG SC (17:00)
--- NOTE | 2023-10-02 18:13 | W.PN.UPDATE ---
Update Note
Progress Note Update
Received sign out from Dr. Lenz - per Dr. Delfin SALDAÑA has signed off.
Please call with any ?S or issues.
[2023-10-02] MEDS: TOPROL XL 50 MG PO (21:00)
[2023-10-02] MEDS: KCL 20 MEQ PO (21:00)
[2023-10-02 23:00] VITALS: BP 131/73
[2023-10-03] MEDS: ZOSYN 50 IV ×2 (05:06→12:42)
[2023-10-03] MEDS: TYLENOL 650 MG PO ×3 (05:09→12:41)
[2023-10-03 07:04] LABS: Hematocrit 35.2 % (39.0-52.0); Hemoglobin 12.6 g/dL (13.0-18.0); Mean Corp Hgb Conc. 35.8 g/dL (33.0-37.0); Mean Corpuscular Hgb 33.1 pg (27.0-31.0); Mean Corpuscular Volume 92.4 fL (80.0-94.0); Mean Platelet Volume 11.2 fL (7.4-10.4); Platelet Count 97 10^3/uL (130-400); Red Blood Cell Count 3.81 10^6/uL (4.70-6.10); Red Cell Dist. Width 13.8 % (11.5-14.5); White Blood Cell Count 9.8 10^3/uL (4.8-10.8)
[2023-10-03 07:30] VITALS: BP 147/73
[2023-10-03 07:41] LABS: ALT (SGPT) 223 U/L (0-50); AST (SGOT) 76 U/L (17-59); Albumin 2.8 g/dl (3.5-5.0); Alkaline Phosphatase 192 U/L (38-126); Blood Urea Nitrogen 17 mg/dl (9-20); Calcium 8.1 mg/dl (8.4-10.2); Carbon Dioxide 22 mmol/L (22-30); Chloride 107 mmol/L (98-107); Direct Bilirubin 2.8 mg/dl (0.0-0.4); Estimated Creatinine Clearance 85 ml/min; Glucose 85 mg/dl (70-99); Potassium 3.7 mmol/L (3.5-5.1); Sodium 134 mmol/L (135-145); Total Bilirubin 4.4 mg/dl (0.2-1.3); Total Protein 5.5 g/dl (6.3-8.2); eGFR > 60.00
[2023-10-03] MEDS: MIRALAX 17 GRAMS PO (08:36)
[2023-10-03] MEDS: NSS (PRESERVATIVE FREE) 10 ML IV (08:37)
[2023-10-03] MEDS: NORVASC 5 MG PO (08:37)
[2023-10-03] MEDS: PROTONIX IV 40 MG IV (08:38)
--- NOTE | 2023-10-03 12:10 | CM ---
Chart reviewed and plan is to home when stable, rehabilitation caseworker will follow with physician for any discharge needs.
Plan; Home when stable.
[2023-10-03 15:00] VITALS: BP 130/71
--- NOTE | 2023-10-03 15:14 | W.PN.HOSP.TC ---
Today's Communication/Plan
-
DC
Assessment / Plan
Assessment / Plan
E. coli bacteremic sepsis - due to cholecystitis and cholangitis with choledocholithiasis, status post ERCP removal of stone and biliary sphincterotomy and balloon extraction. Stable after laparoscopic cholecystectomy September 30. Repeat blood
cultures negative. Afebrile. Resolved symptoms.Had 5 days of intravenous antibiotics.Got a stend in [place] - complete another 2 days of abx.
Hyponatremia -HCTZ discontinued. Sodium 135. Can resume on dc
Thrombocytopenia -unclear if acute versus chronic. CBC improving
Hyperglycemia -rule out DM2. hemoglobin A1c 6.2
Essential HTN--> cont Norvasc and metoprolol, cont hold hctz/triamterene
Hyperlipidemia ->hold stain due to elevated LFT's
GERD--> cont IV PPI
Obesity due to excess calories
DVT prophylaxis-->Lovenox sq
Full code
Mild bump in Bili and alk phos noted .Improving AST/ALT. Pt without GI symptoms and tolerating diet.
Advised him to Repeat LFTs on Friday. Watch out for any fever or recurrence of abdominal pain, nausea or vomiting.
Discussed with GI today
DC home
Anticipated Discharge: Today
Subjective/Interval History
-
Date of Service: October 03, 2023
No GI symptoms. Tolerating diet.
Denies nausea or vomiting. No abdominal pain. No fever or chills.
Objective Data
-
Labs:
Laboratory Results
10/03/23
06:40
WBC 9.8
Hgb 12.6 L
Hct 35.2 L
Plt Count 97 L
Sodium 134 L
Potassium 3.7
Chloride 107
Carbon Dioxide 22
BUN 17
Creatinine 0.9
Glucose 85
Calcium 8.1 L
Total Bilirubin 4.4 H
AST 76 H
ALT 223 H
Alkaline Phosphatase 192 H
Vital Signs:
Vital Signs
Temp Pulse Resp BP Pulse Ox
98.9 F 64 18 147/73 99
10/03/23 07:30 10/03/23 07:30 10/03/23 07:30 10/03/23 07:30 10/03/23 08:40
I&O
10/02/23 10/03/23 10/04/23
06:59 06:59 06:59
Intake Total 1200 / 1200 480 / 480
Balance 1200 / 1200 480 / 480
Review of Systems
-
Constitutional: Denies Fever
EENT: Denies Sore Throat
Respiratory: Denies Cough or Trouble Breathing
Cardiac: Denies Chest Pain
Neuro: Denies Dizzy
Physical Exam
-
General: No Apparent Distress
HEENT: Moist Mucous Membranes
Respiratory: Clear to Auscultation
Cardiac: Regular Rhythm and S1/S2
GI: Soft, Nontender, Nondistended, Normal Bowel Sounds and Other (Trocar sites with bruising but no swelling or bleeding.)
Neuro: AO x 3
Psych: Calm
Data Reviewed
-
Labs: Labs Reviewed by me
--- NOTE | 2023-10-03 15:24 | W.DS.TRANS ---
DC Summary - [employer]
-
Discharge Instructions:
Discharge Diagnosis/Procedures Choledocholithiasis s/p ERCP and s/p
laparoscopic cholecystectomy
Diet Regular
Additional Diets If issues with bloating or diarrhea follow a low
-fat diet
Activity No strenuous activity
Additional Activity No heavy lifting (>20 lbs) or strenuous
activities for 2 weeks postoperatively
Driving Restrictions No driving if too sore or taking narcotics
Bathing Restrictions OK to Shower
Wound Care Keep incisions clean and dry. Glue will flake
off in 2 to 3 weeks. Stitches will dissolve.
Instructions:
Stand-Alone Forms:
Changes to Home Medications: Yes
Discharge Medications:
DC Medications w/original date entered in [facility]
amlodipine 5 mg tablet 5 mg PO DAILY blood pressure 09/29/23
atorvastatin 10 mg tablet 10 mg PO HS high cholesterol 09/29/23
metoprolol succinate 50 mg tablet,extended release 24 hr 50 mg PO HS blood pressure 09/29/23
multivitamin 1 tab PO DAILY Supplement 09/29/23
pantoprazole 20 mg tablet,delayed release 20 mg PO DAILY Gastrointestinal Issue 09/29/23
potassium chloride 10 mEq capsule,extended release 10 meq PO HS Electrolyte Repletion 09/29/23
psyllium 1 packet PO DAILY Constipation 09/29/23
triamterene 37.5 mg-hydrochlorothiazide 25 mg tablet 1 tab PO DAILY blood pressure 09/29/23
vitamin A-vitamin C-vit E-min tablet 1 tab PO DAILY Supplement 09/29/23
Home Medication Changes
New medication - Augmentin
Pending Results: No
[2023-10-03] MEDS: LOVENOX SC (15:49)
[2023-10-03] MEDS: ZOSYN IV (15:50)
[2023-10-03] MEDS: TYLENOL PO (15:50)
== END 2023-10-03 16:01 | disposition home or self-care (01) | DRG 854 ==
LOC: 4 WEST ACU 13:18
PROVIDERS: Hospitalist; Internal Medicine Gastroenterology; Physician Assistant; Registered Nurse; Surgery; ADMITTING PHYSICIAN Hospitalist; ATTENDING PHYSICIAN Internal Medicine; CONSULT PHYSICIAN Internal Medicine Gastroenterology; CONSULT PHYSICIAN Surgery; EMERGENCY PHYSICIAN Emergency Medicine; FAMILY PHYSICIAN Internal Medicine
PROC: 0FC98ZZ Extirpation of Matter from Common Bile Duct, Via Natural or Artificial Opening Endoscopic (ICD-10-PCS; 2023-09-29)
PROC: 0F798DZ Dilation of Common Bile Duct with Intraluminal Device, Via Natural or Artificial Opening Endoscopic (ICD-10-PCS; 2023-09-29)
PROC: 0FT44ZZ Resection of Gallbladder, Percutaneous Endoscopic Approach (ICD-10-PCS; 2023-09-30)
DX: A41.9 Sepsis, unspecified organism (principal); E87.1 Hypo-osmolality and hyponatremia; K80.62 Calculus of gallbladder and bile duct with acute cholecystitis without obstruction; E87.6 Hypokalemia; I10 Essential (primary) hypertension; K21.9 Gastro-esophageal reflux disease without esophagitis; E78.00 Pure hypercholesterolemia, unspecified; D69.6 Thrombocytopenia, unspecified; K76.0 Fatty (change of) liver, not elsewhere classified
CPT/HCPCS: 88304; 74177; 74330; 76000; 80053; 82248; 83036; 83605; 83690; 83735; 85025; 85027; 87040; 87149; 87186; 87205; 93005; 96361; 96365; 96375; 99285; C1769; C2625; Q9967

== ENCOUNTER → 2023-10-07 12:35 | Outpatient (REF) | payer MEDICARE, SELFPAY ==
[2023-10-07 13:33] LABS: ALT (SGPT) 170 U/L (0-50); AST (SGOT) 70 U/L (17-59); Albumin 3.6 g/dl (3.5-5.0); Alkaline Phosphatase 286 U/L (38-126); Blood Urea Nitrogen 16 mg/dl (9-20); Calcium 8.8 mg/dl (8.4-10.2); Carbon Dioxide 28 mmol/L (22-30); Chloride 100 mmol/L (98-107); Glucose 97 mg/dl (70-99); Potassium 4.1 mmol/L (3.5-5.1); Sodium 132 mmol/L (135-145); Total Bilirubin 2.1 mg/dl (0.2-1.3); Total Protein 6.6 g/dl (6.3-8.2); eGFR > 60.00
== END ==
LOC: OLABPV 12:35
PROVIDERS: ATTENDING PHYSICIAN Internal Medicine
DX: I10 Essential (primary) hypertension (principal); R78.89 Finding of other specified substances, not normally found in blood
CPT/HCPCS: 80053

== ENCOUNTER → 2023-10-15 10:38 | Outpatient (REF) | payer MEDICARE, SELFPAY ==
[2023-10-15 11:29] LABS: ALT (SGPT) 75 U/L (0-50); AST (SGOT) 43 U/L (17-59); Albumin 3.5 g/dl (3.5-5.0); Alkaline Phosphatase 166 U/L (38-126); Blood Urea Nitrogen 17 mg/dl (9-20); Calcium 9.3 mg/dl (8.4-10.2); Carbon Dioxide 30 mmol/L (22-30); Chloride 99 mmol/L (98-107); Glucose 99 mg/dl (70-99); Sodium 137 mmol/L (135-145); Total Bilirubin 1.3 mg/dl (0.2-1.3); Total Protein 6.9 g/dl (6.3-8.2); eGFR > 60.00
== END ==
LOC: OLABPV 10:38
PROVIDERS: ATTENDING PHYSICIAN Internal Medicine
DX: R74.8 Abnormal levels of other serum enzymes (principal)
CPT/HCPCS: 36415; 80053

== ENCOUNTER → 2023-10-29 10:20 | Outpatient (REF) | payer MEDICARE, SELFPAY ==
[2023-10-29 11:57] LABS: ALT (SGPT) 35 U/L (0-50); AST (SGOT) 30 U/L (17-59); Albumin 3.9 g/dl (3.5-5.0); Alkaline Phosphatase 116 U/L (38-126); Blood Urea Nitrogen 15 mg/dl (9-20); Calcium 9.3 mg/dl (8.4-10.2); Carbon Dioxide 28 mmol/L (22-30); Chloride 100 mmol/L (98-107); Glucose 104 mg/dl (70-99); Potassium 3.6 mmol/L (3.5-5.1); Sodium 136 mmol/L (135-145); Total Bilirubin 1.3 mg/dl (0.2-1.3); Total Protein 6.9 g/dl (6.3-8.2); eGFR > 60.00
== END ==
LOC: OLABPV 10:20
PROVIDERS: ATTENDING PHYSICIAN Internal Medicine
DX: R79.89 Other specified abnormal findings of blood chemistry (principal)
CPT/HCPCS: 36415; 80053

== ENCOUNTER → 2023-11-07 11:53 | Outpatient (REF) | payer MEDICARE, SELFPAY ==
[2023-11-07 12:56] LABS: ALT (SGPT) 31 U/L (0-50); AST (SGOT) 31 U/L (17-59); HDL Cholesterol 92 mg/dl; LDL Cholesterol, Calculated 40 mg/dl; Total Cholesterol 143 mg/dl (50-199); Triglyceride 55 mg/dl (10-149); Very Low Density Lipoprotein 11 mg/dl (0-30)
== END ==
LOC: OLABPV 11:53
PROVIDERS: ATTENDING PHYSICIAN Internal Medicine Cardiovascular Disease
DX: I25.10 Atherosclerotic heart disease of native coronary artery without angina pectoris (principal)
CPT/HCPCS: 36415; 80061; 84450; 84460

== ENCOUNTER → 2023-11-21 14:15 | Outpatient (REF) | payer MEDICARE, SELFPAY | LOC: RAD 14:15 | PROVIDERS: ATTENDING PHYSICIAN Thoracic Surgery (Cardiothoracic Vascular Surgery); FAMILY PHYSICIAN Internal Medicine | DX: I71.21 Aneurysm of the ascending aorta, without rupture (principal); Q23.1 Congenital insufficiency of aortic valve; I35.2 Nonrheumatic aortic (valve) stenosis with insufficiency | CPT/HCPCS: 71275; 74174; Q9967 ==

== ENCOUNTER 2023-12-02 06:41 | Day surgery (SDC) | payer MEDICARE, SELFPAY ==
[2023-12-02 07:16] VITALS: BMI 29.5
[2023-12-02 07:29] VITALS: BP 150/73
[2023-12-02 07:36] VITALS: BMI 29.5
[2023-12-02 09:37] VITALS: BP 106/67
[2023-12-02 09:45] VITALS: BP 112/77
[2023-12-02 10:00] VITALS: BP 127/72
== END 2023-12-02 10:24 | disposition home or self-care (01) ==
LOC: SDS 06:41
PROVIDERS: ATTENDING PHYSICIAN Internal Medicine Gastroenterology
DX: K80.50 Calculus of bile duct without cholangitis or cholecystitis without obstruction (principal); K57.10 Diverticulosis of small intestine without perforation or abscess without bleeding; Z46.59 Encounter for fitting and adjustment of other gastrointestinal appliance and device; Z53.8 Procedure and treatment not carried out for other reasons
CPT/HCPCS: 43235; 74330; 76000

== ENCOUNTER → 2023-12-10 11:15 | Outpatient (REF) | payer MEDICARE, SELFPAY | LOC: RCS 11:15 | PROVIDERS: ATTENDING PHYSICIAN Thoracic Surgery (Cardiothoracic Vascular Surgery); FAMILY PHYSICIAN Internal Medicine | DX: Q23.1 Congenital insufficiency of aortic valve (principal); I71.21 Aneurysm of the ascending aorta, without rupture; I35.1 Nonrheumatic aortic (valve) insufficiency | CPT/HCPCS: 93306 ==

== ENCOUNTER → 2024-08-20 10:11 | Outpatient (REF) | payer MEDICARE, SELFPAY ==
[2024-08-20 11:12] LABS: % Basophils 1.2 % (0-2); % Eosinophils 4.1 % (0-6); % Immature Granulocytes 0.4 % (0-0.5); % Lymphocytes 30.6 % (20.5-51.1); % Monocytes 13.7 % (1.7-9.3); Absolute Basophils 0.1 10^3/uL (0-0.2); Absolute Eosinophils 0.2 10^3/uL (0-0.7); Absolute Lymphocytes 1.6 10^3/uL (1.2-3.4); Absolute Monocytes 0.7 10^3/uL (0.1-0.6); Absolute Neutrophils 2.6 10^3/uL (1.4-6.5); Hematocrit 39.4 % (39.0-52.0); Hemoglobin 13.7 g/dL (13.0-18.0); Mean Corp Hgb Conc. 34.8 g/dL (33.0-37.0); Mean Corpuscular Hgb 33.7 pg (27.0-31.0); Mean Platelet Volume 10.9 fL (7.4-10.4); Nucleated Red Blood Cells % 0 % (-); Platelet Count 125 10^3/uL (130-400); Red Blood Cell Count 4.06 10^6/uL (4.70-6.10); Red Cell Dist. Width 13.2 % (11.5-14.5); White Blood Cell Count 5.1 10^3/uL (4.8-10.8)
[2024-08-20 11:35] LABS: ALT (SGPT) 23 U/L (0-50); AST (SGOT) 28 U/L (17-59); Alkaline Phosphatase 76 U/L (38-126); Blood Urea Nitrogen 16 mg/dl (9-20); Calcium 9.4 mg/dl (8.4-10.2); Carbon Dioxide 28 mmol/L (22-30); Chloride 100 mmol/L (98-107); Glucose 105 mg/dl (70-99); HDL Cholesterol 73 mg/dl; LDL Cholesterol, Calculated 54 mg/dl; Potassium 4.1 mmol/L (3.5-5.1); Sodium 137 mmol/L (135-145); Total Bilirubin 1.2 mg/dl (0.2-1.3); Total Cholesterol 140 mg/dl (50-199); Total Protein 6.7 g/dl (6.3-8.2); Triglyceride 69 mg/dl (10-149); Very Low Density Lipoprotein 13 mg/dl (0-30); eGFR > 60.00
[2024-08-20 12:02] LABS: PSA, Total - Screen 1.66 ng/ml (0.0-4.0); TSH Reflex To Free T4 1.52 uIU/ml (0.47-4.68)
== END ==
LOC: OLABPV 10:11
PROVIDERS: ATTENDING PHYSICIAN Internal Medicine
DX: I10 Essential (primary) hypertension (principal); G47.33 Obstructive sleep apnea (adult) (pediatric); E78.5 Hyperlipidemia, unspecified; D69.6 Thrombocytopenia, unspecified; R79.89 Other specified abnormal findings of blood chemistry; I35.0 Nonrheumatic aortic (valve) stenosis; Z12.5 Encounter for screening for malignant neoplasm of prostate
CPT/HCPCS: 36415; 80053; 80061; 84443; 85025; G0103

== ENCOUNTER → 2024-12-14 09:45 | Outpatient (REF) | payer MEDICARE, SELFPAY | LOC: RCS 09:45 | PROVIDERS: ATTENDING PHYSICIAN Internal Medicine Cardiovascular Disease; FAMILY PHYSICIAN Internal Medicine | DX: R09.89 Other specified symptoms and signs involving the circulatory and respiratory systems (principal); R01.1 Cardiac murmur, unspecified; I25.10 Atherosclerotic heart disease of native coronary artery without angina pectoris; I35.1 Nonrheumatic aortic (valve) insufficiency | CPT/HCPCS: 93306 ==

== ENCOUNTER → 2024-12-15 11:41 | Outpatient (REF) | payer MEDICARE, SELFPAY ==
[2024-12-15 13:00] LABS: Blood Urea Nitrogen 16 mg/dl (9-20); Calcium 9.3 mg/dl (8.4-10.2); Carbon Dioxide 27 mmol/L (22-30); Chloride 101 mmol/L (98-107); Glucose 105 mg/dl (70-99); Potassium 3.6 mmol/L (3.5-5.1); Sodium 138 mmol/L (135-145); eGFR > 60.00
== END ==
LOC: OLABPV 11:41
PROVIDERS: ATTENDING PHYSICIAN Thoracic Surgery (Cardiothoracic Vascular Surgery)
DX: Z01.810 Encounter for preprocedural cardiovascular examination (principal); Q23.1 Congenital insufficiency of aortic valve
CPT/HCPCS: 36415; 80048

== ENCOUNTER → 2024-12-21 10:12 | Outpatient (REF) | payer MEDICARE, SELFPAY | LOC: RAD 10:12 | PROVIDERS: ATTENDING PHYSICIAN Internal Medicine Cardiovascular Disease; FAMILY PHYSICIAN Internal Medicine; REFERRING PHYSICIAN Thoracic Surgery (Cardiothoracic Vascular Surgery) | DX: R09.89 Other specified symptoms and signs involving the circulatory and respiratory systems (principal); R01.1 Cardiac murmur, unspecified | CPT/HCPCS: 93880 ==

== ENCOUNTER → 2025-01-03 08:10 | Outpatient (REF) | payer MEDICARE, SELFPAY | LOC: RAD 08:10 | PROVIDERS: ATTENDING PHYSICIAN Thoracic Surgery (Cardiothoracic Vascular Surgery); FAMILY PHYSICIAN Internal Medicine | DX: Q23.1 Congenital insufficiency of aortic valve (principal); I35.1 Nonrheumatic aortic (valve) insufficiency; I71.21 Aneurysm of the ascending aorta, without rupture | CPT/HCPCS: 71275; Q9967 ==

== ENCOUNTER → 2025-03-04 11:27 | Outpatient (REF) | payer MEDICARE, SELFPAY | LOC: CLAB 11:27 | PROVIDERS: ATTENDING PHYSICIAN Physician Assistant | DX: J32.9 Chronic sinusitis, unspecified (principal) | CPT/HCPCS: 87070 ==